=== PATIENT | female | born 1990 | race American Indian/Alaskan Native ===

== ENCOUNTER 2018-05-08 04:43 | Inpatient (IN) | payer MEDICAID ==
[2018-05-08] MEDS: LACTATED RINGERS 1,000 ML IV SCH ×2 (04:45→05:22)
[2018-05-08] MEDS ORDERED: BICITRA ONE (04:48)
[2018-05-08] MEDS ORDERED: REGLAN ONE (04:49)
[2018-05-08] MEDS ORDERED: PEPCID IV ONE ×2 (04:49→04:52)
[2018-05-08] MEDS ORDERED: METHERGINE IM ONE (04:50)
[2018-05-08] MEDS ORDERED: PITOCin/NS 20 UNIT/1000ML DRIP 20,000 MILLIUNITS/1,000 ML BAG IV ONE (04:51)
[2018-05-08] MEDS ORDERED: LACTATED RINGERS 1,000 ML ONE (04:51)
[2018-05-08] MEDS ORDERED: BICITRA PO ONE (04:52)
[2018-05-08] MEDS ORDERED: REGLAN IV ONE (04:52)
--- NOTE | 2018-05-08 04:59 | History and Physical Report ---
History of Present Illness Date of examination: 05/08/18 (pt arrived vis EMS grossly ruptured Previous c/s X 4) Date of admission: 05/08/18 04:51 Chief complaint: SROM @ 0330 pt reports clear fluid History of present illness: @ 38 weeks in active labor with SROM Pt was seeing MD @ [facility] Her repeat c/s was pura for Saturday05-12-18 Pt states she was seeing High Risk due to her obesity Medical HX: denies Surgical HX: c/s X 4 Denies ETOH,Smoking,Drugs Past History - Obstetrical History Expected Date of Delivery: 05/19/18 Actual Gestation: 38 Week(s) 3 Day(s) : 5 Para: 4 (all sections) Hx # Term Pregnancies: 4 Number of Pregnancies: 0 Spontaneous Abortions: 0 Induced : 0 Number of Living Children: 4 - Physical Exam Breasts: Positive: deferred Cardiovascular: Regular rate, Normal S1, Normal S2 Lungs: Positive: Normal air movement Abdomen: Positive: normal appearance, soft, normal bowel sounds. Negative: distention, tenderness Genitourinary (Female): Positive: normal external genitalia, normal perenium Vulva: both: normal Vagina: Positive: normal moisture. Negative: discharge Cervix: Negative: lesion, discharge Uterus: Positive: normal size, normal contour Adnexa: both: normal Anus/Rectum: Positive: normal perianal skin, heme negative. Negative: rectal mass, hemorrhoids Extremities: Positive: normal Deep Tendon Reflex Grade: Normal +2 - Obstetrical FHR: category 1 Uterine Contraction Monitor Mode: External Cervical Dilatation: 4.5 (clear fluid) Cervical Effacement Percentage: 70 station: -2 Uterine Contraction Pattern: Regular Uterine Tone Measurement Phase: Resting Uterine Contraction Intensity: Moderate Results All other labs normal. Assessment and Plan 27yo @ 38 weeks with SROM in active labor Records will be requested from [facility]. orders in EMR. Dr.Royster juarez.
[2018-05-08] MEDS ORDERED: PITOCin/NS 20 UNIT/1000ML DRIP 20 UNITS/1,000 ML BAG IV SCH ×2 (05:00→10:05)
[2018-05-08] MEDS ORDERED: ANCEF/STERILE WATER 2 GM/20 ML 2 GM/20 ML SYRINGE IV NR (05:00)
[2018-05-08 05:31] LABS: Basophils # (Auto) 0.1 K/mm3 (0.0-0.1); Basophils % (Auto) 0.6 % (0.0-1.8); Eosinophils # (Auto) 0.1 K/mm3 (0.0-0.4); Eosinophils % (Auto) 0.9 % (0.0-4.3); Hematocrit 32.7 % (30.3-42.9); Hemoglobin 10.2 gm/dl (10.1-14.3); Lymphocytes # (Auto) 2.4 K/mm3 (1.2-5.4); Lymphocytes % (Auto) 19.2 % (13.4-35.0); Mean Corpuscular HGB Conc 31 % (30-34); Monocytes # (Auto) 1.2 K/mm3 (0.0-0.8); Monocytes % (Auto) 9.6 % (0.0-7.3); Platelet Count 295 K/mm3 (140-440); Red Blood Count 4.84 M/mm3 (3.65-5.03); Red Cell Distribution Width 17.1 % (13.2-15.2)
[2018-05-08 05:32] LABS: Mean Corpuscular Volume 68 fl (79-97)
[2018-05-08 06:11] LABS: Hepatitis C Virus Antibody Non-Reactive (NonReactive)
[2018-05-08] MEDS ORDERED: NEO SYNEPHRINE ONE (06:33)
[2018-05-08] MEDS ORDERED: NACL 0.9% IR ONE (06:45)
[2018-05-08] MEDS ORDERED: WATER FOR IRRIG STERILE IR ONE (06:45)
[2018-05-08] MEDS ORDERED: NACL 0.9% 1000 ML 1,000 ML ONE (06:48)
[2018-05-08] MEDS ORDERED: NACL 0.9% 100 ML ONE (06:48)
[2018-05-08] MEDS ORDERED: ASTRAMORPH PF 10MG/10ML ONE (06:53)
--- NOTE | 2018-05-08 07:18 | Operative Report ---
Operative Report Operative Report: Date: 05/08/2018 Preoperative diagnosis: 1. Intrauterine at 38 weeks 2. Previous delivery 4 3. Active labor Postoperative diagnosis: 1. Intrauterine at 38 weeks 2. Previous delivery 4 3. Active labor Procedure: Low uterine transverse incision for delivery Surgeon: Alejandra Dasilva MD Emu Farmer: Stevie Cobb CNM Anesthesia: CSE Anesthesiologist: Magdy Cano M.D. Estimated blood loss: 800 mL Urine out: [] mL Findings: Live born female infant. Weight 6 lbs. 0 oz. Apgars 8 at 1 minute and 9 at 5 minutes. Uterus grossly normal, tubes grossly normal, ovaries grossly normal. Procedure: After risk, benefits, complications, consequences and alternatives for this procedure were discussed with patient and consents were reviewed and signed, she was taken to the OR where CSE anesthesia was placed. She was then placed in the left lateral tilt position, and prepped and draped in the usual sterile fashion. Timeout was performed, and an appropriate level of anesthesia was noted, a Pfannenstiel incision was made and extended to the fascia which was incised and extended in the lateral directions. The overlying fascia was sharply dissected away from the underlying rectus muscles in the superior and inferior directions. The midline was entered bluntly. The vesicouterine fold was incised and with blunt dissection the bladder flap was created. A transverse incision was made in the lower uterine segment and extended in superiolateral direction with finger fractionation. Clear fluid was noted. The infant was delivered from cephalic position. Mouth and nose were bulb suctioned. Spontaneous cry and excellent tone were noted. Cord was doubly clamped and cut. The was given to /resuscitation team present. The placenta was manually extracted. The uterus was then exteriorized and cleared of any further products of conception or placental tissue. The incision was reapproximated using 0 Vicryl in a running interlocking stitch. Grossly normal uterus, tubes and ovaries were noted. Once hemostasis was noted, the uterus was allowed back into the pelvic cavity. The pelvis was irrigated with warm normal saline. Again hemostasis was noted . Surgicel applied for further hemostasis. Interceed was then placed to prevent adhesions. Then attention was turned to the rectus muscles. The rectus muscles reapproximated using 0 Vicryl in a simple interrupted stitch x 2. Once hemostasis was noted, the fascia was reapproximated using 0 Vicryl running stitch fashion. Once hemostasis was noted skin incision was reapproximated using 4-0 Vicryl on a Shravan needle in a subcuticular manner. Counts were correct 3. Patient tolerated procedure well state recovery room in stable condition.
--- NOTE | 2018-05-08 08:35 | Anesthesia Consultation ---
Anesthesia Consult and Med Hx Date of service: 05/08/18 - Airway Anesthetic Teeth Evaluation: Poor (multiple chipped teeth) ROM Head & Neck: Adequate Mental/Hyoid Distance: Adequate Mallampati Class: Class III Intubation Access Assessment: Possibly Difficult - Pre-Operative Health Status ASA Pre-Surgery Classification: ASA3 Proposed Anesthetic Plan: Epidural, Spinal - Pulmonary Hx Asthma: No COPD: No Hx Pneumonia: No - Cardiovascular System Hx Hypertension: No - Central Nervous System Hx Seizures: No Hx Psychiatric Problems: No - Endocrine Hx Renal Disease: No Hx End Stage Renal Disease: No Hx Hypothyroidism: No Hx Hyperthyroidism: No - Hematic Hx Anemia: No Hx Sickle Cell Disease: No - Other Systems Hx Alcohol Use: No Hx Obesity: Yes (BMI 41.2) - Additional Comments Anesthesia Medical History Comments: h/o previous c/section x4
[2018-05-08] MEDS ORDERED: BENADRYL IV PRN (08:36)
--- NOTE | 2018-05-08 08:36 | Anesthesia Day of Surgery ---
Anesthesia Day of Surgery - Day of Surgery Patient Examined: Yes Patient H&P Reviewed: Yes Patient is NPO: Yes
--- NOTE | 2018-05-08 08:37 | Post Anesthesia Evaluation ---
- Post Anesthesia Evaluation Patient Participated: Yes Airway Patent: Yes Stable Respiratory Function: Yes Nausea/Vomiting: No Temp > 96.8F: Yes Pain Manageable: Yes Adequeate Hydration: Yes Anesthesia Complications: No Block Receding Appropriately: Yes Patient on Ventilator: No
[2018-05-08 09:11] LABS: Bilirubin,Urine NEG (Negative); Blood,Urine NEG (Negative); Color,Urine Yellow (Yellow); Mucus,Urine 1+ /HPF
[2018-05-08 09:28] LABS: Benzodiazepines Screen,Urine PRESUMPTIVE NEGATIVE; Cannabinoid Screen,Urine PRESUMPTIVE NEGATIVE; Cocaine Screen,Urine PRESUMPTIVE NEGATIVE; Methadone Screen,Urine PRESUMPTIVE NEGATIVE
[2018-05-08] MEDS ORDERED: NARCAN 0.4 MG/1 ML IV PRN ×2 (09:30→10:05)
[2018-05-08] MEDS ORDERED: ZOFRAN IV PRN ×2 (09:30→10:05)
[2018-05-08] MEDS ORDERED: PHENERGAN PO PRN (09:30)
[2018-05-08] MEDS ORDERED: DILAUDID IV PRN (09:30)
[2018-05-08] MEDS ORDERED: PHENERGAN PR PRN ×2 (09:30→10:05)
[2018-05-08 09:41] LABS: Amphetamine Screen,Urine PRESUMPTIVE POSITIVE; Opiate Screen,Urine PRESUMPTIVE POSITIVE
[2018-05-08] MEDS ORDERED: SODIUM CHLORIDE FLUSH SYRINGE 10 ML IV PRN (10:00)
[2018-05-08] MEDS ORDERED: TORADOL IV PRN ×2 (10:00→10:05)
[2018-05-08] MEDS ORDERED: MYLICON PO PRN (10:05)
[2018-05-08] MEDS ORDERED: TYLENOL PR PRN (10:05)
[2018-05-08] MEDS ORDERED: MORPHINE IV PRN ×2 (10:05)
[2018-05-08] MEDS ORDERED: D5LR 1,000 ML IV SCH (10:05)
[2018-05-08] MEDS ORDERED: TYLENOL PO PRN (10:05)
[2018-05-08] MEDS ORDERED: SODIUM CHLORIDE FLUSH SYRINGE 10 ML IV NR (10:05)
[2018-05-08] MEDS ORDERED: TUCKS PAD TP PRN (10:05)
[2018-05-08] MEDS ORDERED: NUBAIN IV ONE (12:00)
[2018-05-08] MEDS: BENADRYL PO PRN ×2 (16:06→22:21)
[2018-05-08] MEDS: ANCEF/NS 1 GM/50 ML 1 GM/50 ML BAG IV SCH (16:06)
[2018-05-08 18:33] LABS: Hemoglobin 8.6 gm/dl (10.1-14.3)
[2018-05-08] MEDS: PERCOCET 5/325 PO PRN (20:59)
[2018-05-09] MEDS: ANCEF/NS 1 GM/50 ML 1 GM/50 ML BAG IV SCH
[2018-05-09] MEDS: PERCOCET 5/325 PO PRN ×3 (05:38→23:46)
[2018-05-09] MEDS ORDERED: BOOSTRIX IM ONE (06:00)
[2018-05-09] MEDS: IBUPROFEN PO PRN ×2 (10:44→23:46)
[2018-05-09 15:30] LABS: Amphetamine Screen,Urine PRESUMPTIVE NEGATIVE; Benzodiazepines Screen,Urine PRESUMPTIVE NEGATIVE; Cannabinoid Screen,Urine PRESUMPTIVE NEGATIVE; Cocaine Screen,Urine PRESUMPTIVE NEGATIVE; Methadone Screen,Urine PRESUMPTIVE NEGATIVE; Opiate Screen,Urine PRESUMPTIVE NEGATIVE
--- NOTE | 2018-05-09 19:08 | Progress Note ---
Assessment and Plan 27 y.o. S/P C/S POD 1. Patient reports feeling well, no complaints. Reports bleeding is minimal, no clots. Fundus is firm. Incision clean, dry, intact- steri-strips in place. Small blister to right side where dressing was removed. Patient reports "reaction to the adhesive". Instructed to keep area clean and dry. VSSAF. Post op H&H 8.6/28, asymptomatic. Ferrous sulfate 325 PO BID started. Reports baby girl is doing well. Patient will resume breast feeding if repeat UDS is negative- OKs by peds. Subjective - Subjective Date of service: 05/09/18 (AM rounds) Principal diagnosis: S/P C/S POD 1 Patient reports: appetite normal, voiding normally, pain well controlled, ambulating normally : doing well Objective - Vital Signs Latest vital signs: Vital Signs Temp Pulse Resp BP BP Pulse Ox 05/09/18 16:21 98.6 F 94 H 18 109/68 98 05/09/18 13:43 20 05/09/18 10:44 20 05/09/18 08:16 98.1 F 90 18 110/60 05/09/18 05:38 18 05/09/18 02:36 97.5 F L 79 18 97/57 100 05/08/18 20:59 18 05/08/18 20:52 91 H 99 05/08/18 20:51 89 103/62 99 Intake and Output 05/09/18 05/09/18 05/09/18 07:59 15:59 23:59 Intake Total 340 840 600 Balance 340 840 600 Intake: Oral 100 360 Intake, Free Water 240 480 600 Other: Total, Intake Amount 100 120 # Voids Void 1 1 1 - Exam Breasts: Present: normal Cardiovascular: Present: Regular rate Lungs: Present: Clear to auscultation Abdomen: Present: normal appearance, soft, normal bowel sounds Vulva: both: normal Uterus: Present: normal, firm Extremities: Present: normal Incision: Present: normal
[2018-05-09] MEDS: FEOSOL PO SCH (23:45)
[2018-05-09] MEDS: MILK OF MAGNESIA PO PRN (23:50)
[2018-05-10] MEDS: PERCOCET 5/325 PO PRN ×2 (05:49→17:45)
[2018-05-10] MEDS: IBUPROFEN PO PRN ×2 (05:50→21:28)
[2018-05-10] MEDS: FEOSOL PO SCH ×2 (12:12→21:28)
--- NOTE | 2018-05-10 13:29 | Progress Note ---
Assessment and Plan - Patient Problems (1) delivery delivered Current Visit: Yes Status: Acute Plan to address problem: Postoperative day #2. Patient without fever. We will continue routine postoperative care. Patient's postoperative hematocrit 28%. Patient is breast feeding and due to positive drug screen. 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 (2) Positive urine drug screen Current Visit: Yes Status: Acute Subjective - Subjective Date of service: 05/10/18 Principal diagnosis: S/P C/S POD 2 Patient reports: appetite normal, voiding normally, pain well controlled [place]: doing well, bottle feeding Objective - Vital Signs Latest vital signs: Vital Signs Temp Pulse Resp BP BP Pulse Ox 05/10/18 11:00 85 119/74 05/10/18 08:12 97.3 F L 81 18 110/69 05/10/18 00:54 98.3 F 99 H 18 105/60 05/09/18 16:21 98.6 F 94 H 18 109/68 98 05/09/18 13:43 20 Intake and Output 05/09/18 05/10/18 05/10/18 22:59 06:59 14:59 Intake Total 600 480 360 Balance 600 480 360 Intake: Oral 360 Intake, Free Water 600 480 Other: Total, Intake Amount 360 Voiding Method Toilet # Voids Void 1 1 - Exam Breasts: Present: deferred Cardiovascular: Present: Regular rate Lungs: Present: Normal air movement Abdomen: Present: normal appearance, soft, tenderness (appropriate postop) Uterus: Present: firm, fundal height below umbilicus Extremities: Present: edema Incision: Present: normal, dry, intact
[2018-05-10] MEDS: MILK OF MAGNESIA PO PRN (21:28)
[2018-05-10] MEDS: LANSINOH TP PRN (21:28)
[2018-05-11] MEDS: PERCOCET 5/325 PO PRN ×3 (00:47→19:20)
--- NOTE | 2018-05-11 09:38 | Discharge Summary ---
Providers - Providers Date of Admission: 05/08/18 04:51 Date of discharge: 05/11/18 Attending physician: ELBERT MARMOLEJO 05/08/18 10:05 Consult to Buyer [CONS] Routine Reason For Exam: 05/10/18 07:58 Consult to Case Management [CONS] Routine Services Needed at Discharge: Neonatal Nurse Notified:: Annel Phone number called:: [phone] Was contact made?: Yes If yes, spoke with:: Annel Time called:: 08:02 Comment:: positive drug test Opiates and Amphetamines Primary care physician: CERTIFIED FIRE INVESTIGATOR Hospitalization Reason for admission: rupture of membranes Delivery: Procedure: section Procedure details: See operative report Incision: normal, dry, intact complications: none Discharge diagnosis: IUP at term delivered Hospital course: Patient presented with spontaneous rupture membranes with previous section 4. Patient underwent repeat section, Located. Patient Routine and Postoperative Care. Patient Will Be Discharged Home Today. Condition at discharge: Good Disposition: DC-01 TO HOME OR SELFCARE Plan - Discharge Medications Prescriptions: Docusate Sodium [Colace] 100 mg PO BID PRN #60 capsule PRN Reason: Constipation Ferrous Sulfate [Feosol 325 MG tab] 325 mg PO BID #60 tablet Ibuprofen 800 mg PO Q6HR #30 tablet oxyCODONE /ACETAMINOPHEN [Percocet 5/325] 1 tab PO Q4HR #30 tab - Provider Discharge Summary Additional instructions: [] Smoking cessation referral if applicable(refer to patient education folder for contact #) [] Refer to [facility] Booklet Call your doctor immediately for: * Fever > 100.5 * Heavy vaginal bleeding ( >1 pad per hour) * Severe persistent headache * Shortness of breath * Reddened, hot, painful area to leg or breast * Drainage or odor from incision. * Keep incision clean and dry at all times and follow doctor's instructions regarding bathing/showering - Follow up plan Follow up: PRIMARY CARE, [Primary Care Provider] - 7 Days
[2018-05-11] MEDS: IBUPROFEN PO PRN ×2 (12:30→19:19)
[2018-05-11] MEDS: FEOSOL PO SCH (12:30)
[2018-05-11] MEDS: LANSINOH TP PRN (16:00)
[2018-05-11 17:02] VITALS: BP 107/71
== END 2018-05-11 20:17 | disposition home or self-care (01) | DRG 765 ==
LOC: TRG 04:43 → APU 04:51 → OB 10:03
PROVIDERS: ADMIT Obstetrics & Gynecology; ATTEND Obstetrics & Gynecology
PROC: 10D00Z1 Extraction of Products of Conception, Low, Open Approach (ICD-10-PCS; principal; 2018-05-08)
PROC: 3E0234Z Introduction of Serum, Toxoid and Vaccine into Muscle, Percutaneous Approach (ICD-10-PCS; 2018-05-09)
DX: O34.211 Maternal care for low transverse scar from previous cesarean delivery (principal); O99.324 Drug use complicating childbirth; Z3A.38 38 weeks gestation of pregnancy; Z37.0 Single live birth; F15.90 Other stimulant use, unspecified, uncomplicated; F11.90 Opioid use, unspecified, uncomplicated; Z23 Encounter for immunization
CPT/HCPCS: 36415; 80307; 81001; 85014; 85018; 85025; 85660; 86592; 86706; 86762; 86803; 86850; 86900; 86901; 87806; 88307; G0378; A6250; C1765; J0690; J1170; J1200; J1885; J2210; J2270; J2274; J2300; J2370; J2590; J2765; J7030; J7120; J7121

== ENCOUNTER 2018-05-16 11:26 | Inpatient (IN) | payer MEDICAID ==
--- NOTE | 2018-05-16 12:28 | Emergency Department Report ---
HPI - General Chief Complaint: Chest Pain Time Seen by Provider: 05/16/18 12:13 - HPI HPI: Room 1 The patient is a 27-year-old female presented with a chief complaint of shortness of breath and chest pain. The patient is approximately 8 days . The patient states 2-3 days ago she began developing left lower extremity pain and swelling, shortness of breath and left-sided chest pain. Patient describes chest pain as dull and sharp in nature. Patient admits to pleurisy. Patient denies cough or fever. Patient denies nausea/vomiting or erik phoresis. The patient states she is not breast-feeding (patient advised that narcotic pain medication administered in the ED is transmitted in breast milk) Location: Left chest Duration: [See above] Quality: Sharp/dull Severity: Moderate Modifying factors: [see above] Context: [see above] Mode of transportation: [not driving] ED Past Medical Hx - Surgical History Additional Surgical History: x 5 - Family History Family history: no significant - Social History Smoking Status: Never Smoker Substance Use Type: None (denies illicit drug use) - Medications Home Medications: Home Medications Medication Instructions Recorded Confirmed Last Taken Type Vit-Fe Fumar-FA [ 1 tab PO QDAY 05/08/18 05/08/18 05/07/18 History Vitamin] Docusate Sodium [Colace] 100 mg PO BID PRN #60 capsule 05/11/18 Unknown Rx Ferrous Sulfate [Feosol 325 MG tab] 325 mg PO BID #60 tablet 05/11/18 Unknown Rx Ibuprofen 800 mg PO Q6HR #30 tablet 05/11/18 Unknown Rx oxyCODONE /ACETAMINOPHEN [Percocet 1 tab PO Q4HR #30 tab 05/11/18 Unknown Rx 5/325] ED Review of Systems ROS: Stated complaint: CHEST PAIN/SOB/(L) LEG SWOLLEN Other details as noted in HPI Constitutional: denies: diaphoresis Eyes: denies: eye pain ENT: denies: throat pain Respiratory: shortness of breath, SOB with exertion Cardiovascular: chest pain Endocrine: no symptoms reported Gastrointestinal: denies: nausea, vomiting Genitourinary: denies: dysuria Musculoskeletal: myalgia Neurological: denies: headache Physical Exam - Physical Exam Vital Signs: Vital Signs 05/16/18 11:45 Temperature 98.2 F Pulse Rate 53 L Respiratory 22 Rate Blood Pressure 139/82 O2 Sat by Pulse 98 Oximetry Physical Exam: GENERAL: The patient is well-developed well-nourished female lying on stretcher not appearing to be in acute distress. [] HEENT: Normocephalic. Atraumatic. Extraocular motions are intact. Patient has moist mucous membranes. NECK: Supple. Trachea midline CHEST/LUNGS: Clear to auscultation. There is no respiratory distress noted. HEART/CARDIOVASCULAR: Regular. There is no tachycardia. There is no gallop rub or murmur. ABDOMEN: Abdomen is soft, nontender. Patient has normal bowel sounds. There is no abdominal distention. SKIN: There is no rash. There is trace left lower extremity pitting edema. There is no diaphoresis. NEURO: The patient is awake, alert, and oriented. The patient is cooperative. The patient has normal speech MUSCULOSKELETAL: There is tenderness to palpation of the left calf. There is no evidence of acute injury. ED Course Vital Signs 05/16/18 11:45 Temperature 98.2 F Pulse Rate 53 L Respiratory 22 Rate Blood Pressure 139/82 O2 Sat by Pulse 98 Oximetry ED Medical Decision Making - Lab Data Result diagrams: 05/16/18 12:24 05/16/18 12:28 Laboratory Tests 05/16/18 05/16/18 05/16/18 12:24 12:28 12:28 WBC 7.4 RBC 4.06 Hgb 8.7 L Hct 27.7 L MCV 68 L MCH 22 L MCHC 31 RDW 18.6 H Plt Count 266 Lymph % (Auto) 21.9 [place] % (Auto) 8.9 H Eos % (Auto) 1.0 Baso % (Auto) 1.0 Lymph # 1.6 [place] # 0.7 Eos # 0.1 Baso # 0.1 Seg Neutrophils % 67.2 Seg Neutrophils # 4.9 PT 14.7 INR 1.11 APTT 29.2 Sodium 142 Potassium 4.3 Chloride 109.2 H Carbon Dioxide 19 L Anion Gap 18 BUN 10 Creatinine 0.9 Estimated GFR > 60 BUN/Creatinine Ratio 11 Glucose 82 Calcium 8.2 L Total Bilirubin 1.00 AST 117 H ALT 123 H Alkaline Phosphatase 112 Total Creatine Kinase 76 CK-MB (CK-2) < 1.0 CK-MB (CK-2) Rel Index 1.3 Troponin T < 0.010 NT-Pro-B Natriuret Pep 1106 H Total Protein 5.8 L Albumin 3.0 L Albumin/Globulin Ratio 1.1 - EKG Data -: EKG Interpreted by Tn EKG shows normal: sinus rhythm Rate: bradycardia (51 bpm) - EKG Data When compared to previous EKG there are: previous EKG unavailable Interpretation: other (no ischemic changes) - Radiology Data Radiology results: report reviewed (CT chest, left lower extremity Doppler), image reviewed (CT chest, left lower extremity Doppler) [facility] [address] [place] [address] Cat Scan Report Signed Patient: MAYITO PARKINSON MR#: [id number] : 1990 Acct:[id number] Age/Sex: 27 / F ADM Date: 05/16/18 Loc: ED Attending Dr: Ordering Physician: LEODAN ZUNIGA MD Date of Service: 05/16/18 Procedure(s): CT angio chest Accession Number(s): [id number] cc: LEODAN ZUNIGA MD CTA CHEST: HISTORY: Pleuritic chest pain, patient is 10 days . COMPARISON: none. TECHNIQUE: Helical CT in 1.25mm intervals following IV contrast. Pulmonary embolus protocol. Sagittal and coronal reformatted images. Rotational MIP images. FINDINGS: Contrast bolus is satisfactory. No pulmonary embolus is identified. Thyroid gland: Normal. Tracheobronchial tree: Normal. Esophagus: Normal. Heart: Normal. Pericardium: Normal. Mediastinum: Normal. Lung Howard: There is patchy groundglass infiltrate throughout the right lung. This could represent pneumonia or unilateral pulmonary edema. The left lung is within normal limits. Pleural Spaces: Trace left pleural effusion and small layering right pleural effusion are identified. Musculoskeletal: Normal. IMPRESSION: No evidence for pulmonary embolus. Subtle infiltration is identified throughout the right lung which could represent an infectious infiltrate or unilateral pulmonary edema. Trace to small bilateral pleural effusion. Transcribed By: TTR Dictated By: LA OLVERA JR, MD Electronically Authenticated By: LA OLVERA JR, MD Signed Date/Time: 05/16/18 1502 DD/ 1500 TD/TT: 05/16/18 1502 Left lower extremity Doppler (read by radiologist)- no evidence of DVT - Differential Diagnosis PE, DVT, pericarditis, CHF Critical care attestation.: If time is entered above; I have spent that time in minutes in the direct care o f this critically ill patient, excluding procedure time. ED Disposition Clinical Impression: cardiomyopathy, Shortness of breath, Dyspnea on exertion, Chest pain Disposition: OP ADMIT IP TO THIS HOSP Is pt being admited?: Yes Does the pt Need Aspirin: Yes Condition: Fair Instructions: Chest Pain (ED) Referrals: PRIMARY CARE,MD [Primary Care Provider] - 3-5 Days Time of Disposition: 17:01 (hospitalist paged (Dr Milian))
[2018-05-16 12:40] LABS: Basophils # (Auto) 0.1 K/mm3 (0.0-0.1); Eosinophils # (Auto) 0.1 K/mm3 (0.0-0.4); Hematocrit 27.7 % (30.3-42.9); Hemoglobin 8.7 gm/dl (10.1-14.3); Lymphocytes # (Auto) 1.6 K/mm3 (1.2-5.4); Lymphocytes % (Auto) 21.9 % (13.4-35.0); Mean Corpuscular HGB Conc 31 % (30-34); Monocytes # (Auto) 0.7 K/mm3 (0.0-0.8); Monocytes % (Auto) 8.9 % (0.0-7.3); Platelet Count 266 K/mm3 (140-440); Red Blood Count 4.06 M/mm3 (3.65-5.03); Red Cell Distribution Width 18.6 % (13.2-15.2)
[2018-05-16 12:42] LABS: Mean Corpuscular Volume 68 fl (79-97)
[2018-05-16 12:50] LABS: INR 1.11 (0.87-1.13)
[2018-05-16 12:51] LABS: Partial Thromboplastin Time 29.2 Sec. (24.2-36.6)
[2018-05-16 13:10] LABS: Alanine Aminotransferase 123 units/L (7-56); BUN/Creatinine Ratio 11; Blood Urea Nitrogen 10 mg/dL (7-17); Calcium 8.2 mg/dL (8.4-10.2); Hemolysis Index 1
[2018-05-16 13:16] LABS: Creatine Kinase MB < 1.0 ng/mL (0.0-4.0)
[2018-05-16] MEDS ORDERED: SUBLIMAZE IV ONE ×2 (13:29→19:39)
[2018-05-16] MEDS ORDERED: ZOFRAN IV ONE (13:29)
--- NOTE | 2018-05-16 15:05 | Cat Scan Report ---
CTA CHEST: HISTORY: Pleuritic chest pain, patient is 10 days . COMPARISON: none. TECHNIQUE: Helical CT in 1.25mm intervals following IV contrast. Pulmonary embolus protocol. Sagittal and coronal reformatted images. Rotational MIP images. FINDINGS: Contrast bolus is satisfactory. No pulmonary embolus is identified. Thyroid gland: Normal. Tracheobronchial tree: Normal. Esophagus: Normal. Heart: Normal. Pericardium: Normal. Mediastinum: Normal. Lung Howard: There is patchy groundglass infiltrate throughout the right lung. This could represent pneumonia or unilateral pulmonary edema. The left lung is within normal limits. Pleural Spaces: Trace left pleural effusion and small layering right pleural effusion are identified. Musculoskeletal: Normal. IMPRESSION: No evidence for pulmonary embolus. Subtle infiltration is identified throughout the right lung which could represent an infectious infiltrate or unilateral pulmonary edema. Trace to small bilateral pleural effusion.
[2018-05-16] MEDS ORDERED: LASIX IV ONE (16:51)
--- NOTE | 2018-05-16 16:58 | Vascular Lab Report ---
FINAL REPORT EXAM: VL VENOUS DUPLEX LE LT HISTORY: left leg pain and swelling TECHNIQUE: Grayscale and color flow imaging of the deep venous structures of the lower extremities w as performed. Comparison: None FINDINGS: There is demonstration of normal compression and normal phasic flow in the deep venous structures of the proximal right lower extremity from the common femoral vein to the proximal superficial femoral v ein and deep femoral vein. There is demonstration of normal compression and normal phasic flow in the deep venous structures of the left lower extremity from the common femoral vein to the popliteal vein. There is demonstration of normal compression and flow in the left posterior tibial and peroneal veins . IMPRESSION: 1. No ultrasound evidence of deep venous thrombosis left lower extremity from the common femoral vein to the posterior tibial and peroneal veins. 2. No ultrasound evidence of deep venous thrombosis proximal right lower extremity from the common fe moral vein to the proximal superficial femoral vein and deep femoral vein.
[2018-05-17] MEDS ORDERED: SODIUM CHLORIDE FLUSH SYRINGE 10 ML IV PRN ×2 (00:33→00:38)
[2018-05-17] MEDS ORDERED: DILAUDID IV PRN (00:33)
[2018-05-17] MEDS ORDERED: ZOFRAN IV PRN ×2 (00:33→00:38)
[2018-05-17] MEDS ORDERED: REGLAN IV PRN (00:33)
[2018-05-17] MEDS ORDERED: TYLENOL PO PRN ×2 (00:33→00:38)
--- NOTE | 2018-05-17 00:33 | History and Physical Report ---
History of Present Illness Date of examination: 05/16/18 Date of admission: 05/16/18 17:40 Medications and Allergies Allergies Allergy/AdvReac Type Severity Reaction Status Date / Time No Known Allergies Allergy Verified 05/16/18 11:45 Home Medications Medication Instructions Recorded Confirmed Last Taken Type Vit-Fe Fumar-FA [ 1 tab PO QDAY 05/08/18 05/08/18 05/07/18 History Vitamin] Docusate Sodium [Colace] 100 mg PO BID PRN #60 capsule 05/11/18 Unknown Rx Ferrous Sulfate [Feosol 325 MG tab] 325 mg PO BID #60 tablet 05/11/18 Unknown Rx Ibuprofen 800 mg PO Q6HR #30 tablet 05/11/18 Unknown Rx oxyCODONE /ACETAMINOPHEN [Percocet 1 tab PO Q4HR #30 tab 05/11/18 Unknown Rx 5/325] Exam - Constitutional Vitals: Temp Pulse Resp BP Pulse Ox 97.8 F 100 H 22 114/57 100 05/16/18 23:00 05/16/18 23:51 05/16/18 23:51 05/16/18 23:51 05/16/18 23:51 Results - Labs CBC & Chem 7: 05/16/18 12:24 05/16/18 12:28 Labs: Laboratory Last Values WBC 7.4 K/mm3 (4.5-11.0) 05/16/18 12:24 RBC 4.06 M/mm3 (3.65-5.03) 05/16/18 12:24 Hgb 8.7 gm/dl (10.1-14.3) L 05/16/18 12:24 Hct 27.7 % (30.3-42.9) L 05/16/18 12:24 MCV 68 fl (79-97) L 05/16/18 12:24 MCH 22 pg (28-32) L 05/16/18 12:24 MCHC 31 % (30-34) 05/16/18 12:24 RDW 18.6 % (13.2-15.2) H 05/16/18 12:24 Plt Count 266 K/mm3 (140-440) 05/16/18 12:24 Lymph % (Auto) 21.9 % (13.4-35.0) 05/16/18 12:24 [place] % (Auto) 8.9 % (0.0-7.3) H 05/16/18 12:24 Eos % (Auto) 1.0 % (0.0-4.3) 05/16/18 12:24 Baso % (Auto) 1.0 % (0.0-1.8) 05/16/18 12:24 Lymph # 1.6 K/mm3 (1.2-5.4) 05/16/18 12:24 [place] # 0.7 K/mm3 (0.0-0.8) 05/16/18 12:24 Eos # 0.1 K/mm3 (0.0-0.4) 05/16/18 12:24 Baso # 0.1 K/mm3 (0.0-0.1) 05/16/18 12:24 Seg Neutrophils % 67.2 % (40.0-70.0) 05/16/18 12:24 Seg Neutrophils # 4.9 K/mm3 (1.8-7.7) 05/16/18 12:24 PT 14.7 Sec. (12.2-14.9) 05/16/18 12:28 INR 1.11 (0.87-1.13) 05/16/18 12:28 APTT 29.2 Sec. (24.2-36.6) 05/16/18 12:28 Sodium 142 mmol/L (137-145) 05/16/18 12:28 Potassium 4.3 mmol/L (3.6-5.0) 05/16/18 12:28 Chloride 109.2 mmol/L (98-107) H 05/16/18 12:28 Carbon Dioxide 19 mmol/L (22-30) L 05/16/18 12:28 Anion Gap 18 mmol/L 05/16/18 12:28 BUN 10 mg/dL (7-17) 05/16/18 12:28 Creatinine 0.9 mg/dL (0.7-1.2) 05/16/18 12:28 Estimated GFR > 60 ml/min 05/16/18 12:28 BUN/Creatinine Ratio 11 % 05/16/18 12:28 Glucose 82 mg/dL (65-100) 05/16/18 12:28 Calcium 8.2 mg/dL (8.4-10.2) L 05/16/18 12:28 Total Bilirubin 1.00 mg/dL (0.1-1.2) 05/16/18 12:28 AST 117 units/L (5-40) H 05/16/18 12:28 ALT 123 units/L (7-56) H 05/16/18 12:28 Alkaline Phosphatase 112 units/L (35-129) 05/16/18 12:28 Total Creatine Kinase 76 units/L (30-135) 05/16/18 12:28 CK-MB (CK-2) < 1.0 ng/mL (0.0-4.0) 05/16/18 12:28 CK-MB (CK-2) Rel Index 1.3 (0-4) 05/16/18 12:28 Troponin T < 0.010 ng/mL (0.00-0.029) 05/16/18 12:28 NT-Pro-B Natriuret Pep 1106 pg/mL (0-450) H 05/16/18 12:28 Total Protein 5.8 g/dL (6.3-8.2) L 05/16/18 12:28 Albumin 3.0 g/dL (3.9-5) L 05/16/18 12:28 Albumin/Globulin Ratio 1.1 % 05/16/18 12:28 - Imaging and Cardiology Imaging and Cardiology: Lung Howard: There is patchy groundglass infiltrate throughout the right lung. This could represent pneumonia or unilateral pulmonary edema. The left lung is within normal limits. Pleural Spaces: Trace left pleural effusion and small layering right pleural effusion are identified. Musculoskeletal: Normal. IMPRESSION: No evidence for pulmonary embolus. Subtle infiltration is identified throughout the right lung which could represent an infectious infiltrate or unilateral pulmonary edema. Trace to small bilateral pleural effusion.
[2018-05-17] MEDS ORDERED: PERCOCET 5/325 PO PRN (00:43)
[2018-05-17] MEDS ORDERED: ATROVENT IH ONE (00:56)
[2018-05-17] MEDS ORDERED: PROVENTIL IH ONE (00:56)
[2018-05-17 02:09] LABS: Alanine Aminotransferase 189 units/L (7-56); Albumin 3.1 g/dL (3.9-5); BUN/Creatinine Ratio 12; Blood Urea Nitrogen 11 mg/dL (7-17); Calcium 8.3 mg/dL (8.4-10.2); Hemolysis Index 5
[2018-05-17] MEDS ORDERED: LASIX IV SCH (06:00)
--- NOTE | 2018-05-17 06:26 | Event Note ---
Date: 05/16/18 See dictated H/p in reports Rt side PNA versus New onset CHF R/o NICM-Patient is post hypocalcemia Malnutrition
--- NOTE | 2018-05-17 07:12 | History and Physical Report ---
CHIEF COMPLAINT: Chest pain and shortness of breath for 2-3 days. Also left lower extremity pain and swelling for 2-3 days. HISTORY OF PRESENT ILLNESS: A 27-year-old female with recent delivery of her baby 8 days ago, comes in for increasing shortness of breath and chest pain. Also, left lower extremity swelling. Chest pain is dull, about 6 on a scale of 1-10, more with breathing. No radiation. No shortness of breath, no diaphoresis. Has shortness of breath on lying down and minimal exertion. No fever. PAST MEDICAL HISTORY: No significant past medical history. PAST SURGICAL HISTORY: 5 times. FAMILY HISTORY: No significant family history. SOCIAL HISTORY: Does not smoke. Denies any illicit drug use. CURRENT MEDICATIONS: vitamins and iron tablets. REVIEW OF SYSTEMS: Significant for increasing shortness of breath, orthopnea, and chest pain, especially on taking deep breath and left lower extremity swelling. Otherwise, review of systems negative. PHYSICAL EXAMINATION: GENERAL: Young female, cooperative during examination, in mild distress. VITAL SIGNS: Blood pressure is 114/57, temperature is 98.5, pulse is 105, respiratory rate is 31. HEENT: Unremarkable. Pupils equal and reactive. NECK: Supple, no lymphadenopathy, no thyromegaly. No jugular venous distention. LUNGS: Scattered rales bilaterally. CARDIOVASCULAR SYSTEM: S1, S2 heard. No gallop, no murmur, no rub. Apical impulse in left fifth intercostal space in midclavicular line. ABDOMEN: Soft and benign. No hepatosplenomegaly, no guarding, no rigidity. Hernial orifices are normal. EXTREMITIES: Good pedal pulses. No pedal edema. CENTRAL NERVOUS SYSTEM: Alert and oriented x 4, nonfocal exam. SKIN: Normal. LABORATORY DATA: Significant for H and H of 8.7 and 27.7. Platelet count is normal. Electrolytes are normal. Chloride is 109, bicarbonate is 19. AST and ALT are elevated at 117 and 123. BNP is 1106. Total protein is 5.8, albumin is 3.0. DIAGNOSTIC DATA: Chest CTA shows no evidence for pulmonary embolism. Subtle infiltrate throughout the right lung, which could represent infectious infiltrate or unilateral pulmonary edema. ASSESSMENT AND PLAN: 1. Right-sided pneumonia. The patient initiated on IV antibiotics. 2. New onset congestive heart failure with congestive heart failure exacerbation. The patient to get echocardiogram. The patient initiated on IV Lasix q. 12. Cardiology consult requested. The patient is , possible nonischemic cardiomyopathy. BNP is 1106, high but not very high. 3. Transaminitis, etiology unclear. Hepatitis profile ordered. 4. Malnutrition. The patient's albumin is 3.0. Dietitian consult requested. 5. Hypocalcemia. Calcium supplements requested. 6. Deep venous thrombosis prophylaxis, Lovenox 40 mg subcutaneous daily and gastrointestinal prophylaxis. JOB# [id number] VSM/NTS DIMITRID
[2018-05-17 08:21] VITALS: BP 115/69
[2018-05-17] MEDS ORDERED: CALTRATE PLUS PO SCH (10:00)
[2018-05-17] MEDS ORDERED: SODIUM CHLORIDE FLUSH SYRINGE 10 ML IV SCH ×2 (10:00)
[2018-05-17] MEDS ORDERED: PEPCID PO SCH (10:00)
[2018-05-17] MEDS ORDERED: K-DUR PO SCH (10:00)
[2018-05-17] MEDS ORDERED: LEVAQUIN 750MG/150ML 750 MG/150 ML BAG IV SCH (10:00)
--- NOTE | 2018-05-17 10:19 | Consultation ---
History of Present Illness Consult date: 05/17/18 Consult reason: shortness of breath History of present illness: Patient presenting for the evaluation of shortness of breath, orthopnea, and LE edema Today she is feeling better after diuresis. Her shortness of breath and orthopnea have both resolved Echo is showing preserved LVEF Patient is s/p on Saturday Past History Past Surgical History: Social history: no significant social history Family history: no significant family history Medications and Allergies Allergies Allergy/AdvReac Type Severity Reaction Status Date / Time No Known Allergies Allergy Verified 05/16/18 11:45 Home Medications Medication Instructions Recorded Confirmed Last Taken Type Vit-Fe Fumar-FA [ 1 tab PO QDAY 05/08/18 05/08/18 05/07/18 History Vitamin] Docusate Sodium [Colace] 100 mg PO BID PRN #60 capsule 05/11/18 Unknown Rx Ferrous Sulfate [Feosol 325 MG tab] 325 mg PO BID #60 tablet 05/11/18 Unknown Rx Ibuprofen 800 mg PO Q6HR #30 tablet 05/11/18 Unknown Rx oxyCODONE /ACETAMINOPHEN [Percocet 1 tab PO Q4HR #30 tab 05/11/18 Unknown Rx 5/325] Active Meds: Active Medications Acetaminophen (Tylenol) 650 mg PO Q4H PRN PRN Reason: Pain MILD(1-3)/Fever >100.5/CHATMAN Famotidine (Pepcid) 20 mg PO BID [facility] Last Admin: 05/17/18 09:56 Dose: 20 mg Documented by: Furosemide (Lasix) 40 mg IV 0600,1800 [facility] Last Admin: 05/17/18 05:46 Dose: 40 mg Documented by: Hydromorphone HCl (Dilaudid) 0.25 mg IV Q3H PRN PRN Reason: Pain, Moderate (4-6) Last Admin: 05/17/18 00:49 Dose: 0.25 mg Documented by: Levofloxacin/Dextrose (Levaquin 750mg/150ml) 750 mg in 150 mls @ 100 mls/hr IV Q24HR [facility]; Protocol Last Admin: 05/17/18 09:56 Dose: 100 mls/hr Documented by: Metoclopramide HCl (Reglan) 10 mg IV Q6H PRN PRN Reason: Nausea And Vomiting Multivitamins/Minerals (Caltrate Plus) 1 each PO BID [facility] Last Admin: 05/17/18 09:56 Dose: 1 each Documented by: Ondansetron HCl (Zofran) 4 mg IV Q8H PRN PRN Reason: Nausea And Vomiting Oxycodone/Acetaminophen (Percocet 5/325) 1 tab PO Q4H PRN PRN Reason: Pain, Moderate (4-6) Potassium Chloride (K-Dur) 20 meq PO Q12H [facility] Last Admin: 05/17/18 09:56 Dose: 20 meq Documented by: Sodium Chloride (Sodium Chloride Flush Syringe 10 Ml) 10 ml IV PRN PRN PRN Reason: LINE FLUSH Sodium Chloride (Sodium Chloride Flush Syringe 10 Ml) 10 ml IV BID [facility] Last Admin: 05/17/18 09:58 Dose: 10 ml Documented by: Sodium Chloride (Sodium Chloride Flush Syringe 10 Ml) 10 ml IV PRN PRN PRN Reason: LINE FLUSH Review of Systems All systems: negative Physical Examination Vital Signs Temp Pulse Resp BP Pulse Ox 98.2 F 53 L 22 139/82 98 05/16/18 11:45 05/16/18 11:45 05/16/18 11:45 05/16/18 11:45 05/16/18 11:45 General appearance: no acute distress HEENT: Positive: PERRL Neck: Positive: neck supple Cardiac: Positive: Reg Rate and Rhythm Lungs: Positive: Normal Exam Neuro: Positive: Grossly Intact Abdomen: Positive: Soft Results 05/16/18 12:24 05/17/18 00:46 Cardiac Enzymes 05/16/18 05/17/18 Range/Units 12:28 00:46 AST 117 H 148 H (5-40) units/L CK-MB (CK-2) < 1.0 (0.0-4.0) ng/mL Coagulation 05/16/18 Range/Units 12:28 PT 14.7 (12.2-14.9) Sec. INR 1.11 (0.87-1.13) APTT 29.2 (24.2-36.6) Sec. CBC 05/16/18 Range/Units 12:24 WBC 7.4 (4.5-11.0) K/mm3 RBC 4.06 (3.65-5.03) M/mm3 Hgb 8.7 L (10.1-14.3) gm/dl Hct 27.7 L (30.3-42.9) % Plt Count 266 (140-440) K/mm3 Lymph # 1.6 (1.2-5.4) K/mm3 Cross # 0.7 (0.0-0.8) K/mm3 Eos # 0.1 (0.0-0.4) K/mm3 Baso # 0.1 (0.0-0.1) K/mm3 Comprehensive Metabolic Panel 05/16/18 05/17/18 Range/Units 12:28 00:46 Sodium 142 140 (137-145) mmol/L Potassium 4.3 4.1 (3.6-5.0) mmol/L Chloride 109.2 H 102.5 (98-107) mmol/L Carbon Dioxide 19 L 25 (22-30) mmol/L BUN 10 11 (7-17) mg/dL Creatinine 0.9 0.9 (0.7-1.2) mg/dL Glucose 82 90 (65-100) mg/dL Calcium 8.2 L 8.3 L (8.4-10.2) mg/dL AST 117 H 148 H (5-40) units/L ALT 123 H 189 H (7-56) units/L Alkaline Phosphatase 112 107 (35-129) units/L Total Protein 5.8 L 5.2 L (6.3-8.2) g/dL Albumin 3.0 L 3.1 L (3.9-5) g/dL EKG interpretations - Telemetry EKG Rhythm: Sinus Bradycardia Assessment and Plan Shortness of breath and orthopnea Secondary to iatrogenic fluid overload from recent No evidence of PPCM Sinus bradycardia - asymptomatic Microcytic anemia Recommendations: Check 1 more set of troponin, if negative then patient may go home No need for outpatient diuretic therapy
[2018-05-17 11:57] LABS: Hepatitis B Surface Antigen Non-Reactive (Negative); Hepatitis C Virus Antibody Non-Reactive (NonReactive)
--- NOTE | 2018-05-17 13:07 | Discharge Summary ---
Providers - Providers Date of Admission: 05/16/18 17:40 Date of discharge: 05/17/18 Attending physician: SURAJ LOVETT 05/17/18 00:33 Consult to Physician [CONS] Routine Comment: Consulting Provider: MALENA SMITH Physician Instructions: Reason For Exam: CHF 05/17/18 06:26 Consult to Dietitian/Nutrition [CONS] Routine Physician Instructions: Reason For Exam: malnutrition Reason for Consult: Nutrition Recommendations Reason for Consult: Pt needs oral supplement Primary care physician: ONLINE COMMUNITY MANAGER Hospitalization Condition: Stable Hospital course: Patient is a 27 yo woman who presents with shortness of breath, orthopnea, and LE edema. She was seen by Cardiology and symptoms most likely secondary to iatrogenic fluid overload from recent . Today she is feeling better after diuresis. Her shortness of breath and orthopnea have both resolved. * Echo is showing preserved LVEF * Patient is s/p on Saturday -Shortness of breath, orthopnea, and LE edema Secondary to iatrogenic fluid overload from recent on Saturday and ok to discharge per Cardiology -Unlikely PNA, no wbc, no fever, Right infiltrate on CT most likely fluid overload, help more by lasix -NO PPCM/CHF, fluid overload from recent surgery per Cardiology -Transaminitis with normal liver function/coags: outpatient GI referral -Mild malnutrition Sinus bradycardia - asymptomatic Microcytic anemia Disposition: TO HOME OR SELFCARE Time spent for discharge: 36 minutes Core Measure Documentation - Palliative Care Palliative Care/ Comfort Measures: Not Applicable - Core Measures Any of the following diagnoses?: none - VTE Discharge Requirements Deep Vein Thrombosis/Pulmonary Embolism Present on Admission: No Has pt received <5 days of overlap therapy or INR<2.0: No Anticoagulant overlap therapy prescribed at discharge: No Contraindication No Overlap Therapy order at DC: Not Indicated Exam - Physical Exam Narrative exam: Gen: WDWN, NAD, Awake, Alert, Orientated HEENT: NCAT, EOMI, PERRL, OP Clear Neck: supple, no adenopathy, no thyromegaly, no JVD CVS/Heart: RRR, normal S1S2, pulses present bilaterally Chest/Lungs: CTA B, Symmetrical chest expansion, good air entry bilaterally GI/Abdomen: soft, NTND, good bowel sounds, no guarding or rebound /Bladder: no suprapubic tenderness, no CVA or paraspinal tenderness Extermity/Skin: no c/c/e, no obvious rash MSK: FROM x 4 Neuro: CN 2-12 grossly intact, no new focal deficits Psych: calm - Constitutional Vitals: Temp Pulse Resp BP Pulse Ox 98.1 F 54 L 16 115/69 95 05/17/18 08:12 05/17/18 08:12 05/17/18 08:12 05/17/18 08:12 05/17/18 08:12 Plan Activity: other (no strenous activity until cleared by BUSINESS PERFORMANCE ANALYST) Diet: advance as tolerated Follow up with: PRIMARY CARE, [Primary Care Provider] - 3-5 Days ELBERT MARMOLEJO MD [Staff Physician] - 7 Days ALYSSA FAGAN MD [Staff Physician] - 7 Days TUAN HENRY MD [Staff Physician] - 7 Days Forms: Discharge Signature Page
== END 2018-05-17 14:55 | disposition home or self-care (01) | DRG 776 ==
LOC: ED 11:26 → 4A 17:40
PROVIDERS: ADMIT Internal Medicine; ATTEND Internal Medicine
DX: O99.53 Diseases of the respiratory system complicating the puerperium (principal); J18.9 Pneumonia, unspecified organism; O99.89 Other specified diseases and conditions complicating pregnancy, childbirth and the puerperium; R74.0 Nonspecific elevation of levels of transaminase and lactic acid dehydrogenase [LDH]; O99.03 Anemia complicating the puerperium; D64.9 Anemia, unspecified; E44.1 Mild protein-calorie malnutrition; O25.3 Malnutrition in the puerperium; R00.1 Bradycardia, unspecified; R06.01 Orthopnea; E87.79 Other fluid overload; E83.51 Hypocalcemia; O99.43 Diseases of the circulatory system complicating the puerperium; I42.9 Cardiomyopathy, unspecified; I50.9 Heart failure, unspecified; I25.10 Atherosclerotic heart disease of native coronary artery without angina pectoris; Z68.39 Body mass index [BMI] 39.0-39.9, adult; Z79.899 Other long term (current) drug therapy
CPT/HCPCS: 36415; 71275; 80053; 80074; 82550; 82553; 83880; 84484; 85025; 85610; 85730; 87116; 93005; 93010; 93306; 96365; 96366; 96375; 96376; G0378; J1170; J1940; J1956; J2405; J3010; Q9967